=== PATIENT | male | born 1995 | race Two or more races ===

== ENCOUNTER 2016-11-23 20:10 | Emergency (ER) | payer MEDICAID, OTHER ==
[~2016-11-23] VITALS: Ht 162.6 cm; Wt 86.2 kg
[2016-11-23 20:24] VITALS: BP 150/102
== END 2016-11-23 22:00 | disposition left against medical advice (07) ==
LOC: ER 20:20
DX: S31.159A Open bite of abdominal wall, unspecified quadrant without penetration into peritoneal cavity, initial encounter (principal); S61.451A Open bite of right hand, initial encounter; Z53.21 Procedure and treatment not carried out due to patient leaving prior to being seen by health care provider; W54.0XXA Bitten by dog, initial encounter; Y93.89 Activity, other specified; Y99.8 Other external cause status; Y92.89 Other specified places as the place of occurrence of the external cause